=== PATIENT | female | born 1955 | race Caucasian/White ===

== ENCOUNTER 2023-02-13 06:14 | Observation (INO) ==
[~2023-02-13 06:14] MED LIST: Buffered Lidocaine 1% SYRIN 1 ml INTRADERM ONE; Lactated Ringers 1000 ml BAG 1,000 ML IV SCH; Phenylephrine IV 10 MG/ML 1 ml VIAL ONE; Propofol 10 MG/ML 20 ML BTL ONE; Sevoflurane BOTTLE ONE
[2023-02-13] MEDS ORDERED: Ondansetron 4 mg VIAL 2 MG/ML 2 ml VIAL ONE (06:20)
[2023-02-13] MEDS ORDERED: Midazolam 2 mg/2 ml VIAL 1 mg/ml 2 ml VIAL (2 mg) ONE (06:21)
[2023-02-13] MEDS ORDERED: ceFAZolin 2 GM in NS PREMIX 2 GM/100 ML BAG IVPB ONE (07:22)
[2023-02-13 07:44] LABS: Rapid COVID-19 Molecular Undetected (Undetected)
[2023-02-13] MEDS ORDERED: ROPIVACAINE 5 MG/ML 30 ML BTL (0.5%) ONE (08:18)
[2023-02-13] MEDS ORDERED: Bupivacaine 0.25% w/EPI 10 ML SDV ONE (09:10)
[2023-02-13] MEDS ORDERED: Lidocaine 2% PF 5 ML VIAL ONE (09:42)
[2023-02-13] MEDS ORDERED: Glycopyrrolate IV 0.2 MG/ML 1 ML VIAL ONE (09:49)
[2023-02-13] MEDS ORDERED: Morphine 2 MG/ML SYRINGE IV PRN (09:53)
[2023-02-13] MEDS ORDERED: Magnesium Hydroxide LIQ 30 ML UDC PO PRN (09:53)
[2023-02-13] MEDS ORDERED: Lactulose 30 ml UDC PO PRN (09:53)
[2023-02-13] MEDS ORDERED: Prochlorperazine 5 mg/ml 2 ml VIAL (10 mg) IV PRN (09:57)
[2023-02-13] MEDS ORDERED: Lactated Ringers 1000 ml BAG 1,000 ML IV SCH (10:00)
[2023-02-13] MEDS ORDERED: Naloxone 0.4 mg VIAL 0.4 mg/ml 1 ml VIAL IV PRN (10:40)
[2023-02-13] MEDS ORDERED: HYDROmorphone 1 MG/1 ML SYRINGE IV PRN (10:40)
[2023-02-13] MEDS ORDERED: Bupivacaine-MPF SPINAL 7.5 MG/ML - 2ML AMP ONE (11:09)
[2023-02-13] MEDS ORDERED: Dexamethasone IV 4 MG/ML VIAL 1 ml VIAL ONE (11:58)
[2023-02-13] MEDS: ceFAZolin 1 GM ADVAN 1 GM in NS 0.9% 50 ML 50 ML IVPB SCH (17:20)
[2023-02-13] MEDS: Magnesium Hydroxide LIQ 30 ML UDC PO SCH (22:15)
[2023-02-14] MEDS: ceFAZolin 1 GM ADVAN 1 GM in NS 0.9% 50 ML 50 ML IVPB SCH ×2 (01:22→08:44)
[2023-02-14] MEDS: Magnesium Hydroxide LIQ 30 ML UDC PO SCH (08:46)
[2023-02-14] MEDS ORDERED: Cholecalciferol (VIT D3) 1,000 unit TAB PO SCH (09:00)
[2023-02-14] MEDS ORDERED: Vitamin THERAPEUTIC TAB PO SCH (09:00)
[2023-02-14 09:42] LABS: Hematocrit 33.7 % (35-45); Hemoglobin 11.7 g/dL (11.5-14.3); Mean Platelet Volume 7.7 fL (7.5-11.2); Platelet Count 244 10^3/uL (150-450)
[2023-02-14 10:05] LABS: Calcium 8.4 mg/dL (8.6-10.3); Creatinine, Serum 0.84 mg/dL (0.51-0.95); Potassium 3.7 mmol/L (3.5-5.0); eGFR CKD-EPI 77.1 (>60)
[2023-02-14 10:12] VITALS: BP 119/72
== END 2023-02-14 13:27 | disposition home or self-care (01) ==
LOC: SSU 06:14 → OR 06:14
PROVIDERS: ADMIT Orthopaedic Surgery Adult Reconstructive Orthopaedic Surgery; ATTEND Orthopaedic Surgery Adult Reconstructive Orthopaedic Surgery